=== PATIENT | female | born 1955 | race Native Hawaiian/Other Pacific Islander ===

== ENCOUNTER 2016-12-10 11:38 | Outpatient (CLI) | payer OTHER | END 2016-12-10 12:40 | disposition home or self-care (01) | LOC: LABW 11:38 | PROVIDERS: Internal Medicine Cardiovascular Disease | DX: Z79.899 Other long term (current) drug therapy (principal); Z51.81 Encounter for therapeutic drug level monitoring | CPT/HCPCS: 36415; 80061 ==

== ENCOUNTER 2017-02-11 10:41 | Outpatient (CLI) | payer OTHER | END 2017-02-11 21:15 | disposition home or self-care (01) | LOC: MAMMO 10:41 | DX: Z12.31 Encounter for screening mammogram for malignant neoplasm of breast (principal) ==

== ENCOUNTER 2020-03-15 08:51 | Outpatient (CLI) | payer OTHER | END 2020-03-15 20:55 | disposition home or self-care (01) | LOC: RESP 08:51 | PROVIDERS: ATTEND Internal Medicine Cardiovascular Disease | DX: I10 Essential (primary) hypertension (principal) ==